=== PATIENT | female | born 1995 | race Caucasian/White ===

== ENCOUNTER 2022-03-03 23:11 | Emergency (ER) | payer BC ==
[2022-03-04] MEDS ORDERED: Sodium Chloride 0.9% 1,000 ML IV ONE (00:13)
[2022-03-04] MEDS ORDERED: Ketorolac 15 MG/ML SDV IVPUSH ONE (00:13)
[2022-03-04 00:47] LABS: ESTIMATED GFR > 60 mL/min (>60)
== END 2022-03-04 02:12 | disposition home or self-care (01) ==
LOC: JD.ED 23:11
DX: N39.0 Urinary tract infection, site not specified (principal); Z79.899 Other long term (current) drug therapy; Z91.013 Allergy to seafood; Z88.0 Allergy status to penicillin; Z91.040 Latex allergy status
CPT/HCPCS: 36415; 74177; 80053; 81001; 83605; 85025; 87086; 87088; 87186; 96361; 96374; 99284; J1885; J7030

== ENCOUNTER 2023-05-28 02:59 | Inpatient (IN) | payer BC ==
[2023-05-28] MEDS ORDERED: Sodium Chloride 0.9% 10 ML Syringe FLUSH PRN (06:00)
[2023-05-28] MEDS: Lactated Ringers 1,000 ML IV SCH ×2 (06:00→07:22)
[2023-05-28 06:08] LABS: BASOPHILS ABSOLUTE AUTO 0.1 K/mm3 (0.0-0.2); BASOPHILS PERCENT AUTO 0.7 % (0.0-1.0); EOSINOPHILS ABSOLUTE AUTO 0.1 K/mm3 (0.0-0.4); EOSINOPHILS PERCENT AUTO 1.7 % (0.0-6.0); HEMATOCRIT 33.2 % (37.0-47.0); HEMOGLOBIN 11.3 gm/dl (12.0-16.0); IMMATURE GRAN ABSOLUTE AUTO 0.01 K/mm3 (0.00-0.05); IMMATURE GRAN PERCENT AUTO 0.1 % (0.0-0.4); LYMPHOCYTES ABSOLUTE AUTO 1.6 K/mm3 (1.0-4.8); LYMPHOCYTES PERCENT AUTO 23.7 % (24.0-44.0); MEAN CORPUSCULAR HEMOGLOBIN 32.3 pg (28.0-32.0); MEAN CORPUSCULAR VOLUME 94.9 fl (83.0-99.0); MEAN PLATELET VOLUME 9.8 fl (9.4-12.3); MONOCYTES ABSOLUTE AUTO 0.5 K/mm3 (0.0-0.8); MONOCYTES PERCENT AUTO 7.7 % (0.0-8.0); NEUTROPHILS ABSOLUTE AUTO 4.5 K/mm3 (1.8-7.7); NEUTROPHILS PERCENT AUTO 66.1 % (41.0-71.0); PLATELET COUNT,PLT 175 K/mm3 (150-400); WHITE BLOOD CELL COUNT,WBC 6.87 K/mm3 (3.9-11.3)
[2023-05-28] MEDS ORDERED: Oxytocin 10 Units/1 ML SDV ONE ×2 (06:53→08:20)
[2023-05-28] MEDS ORDERED: Ondansetron 4 MG/2 ML SDV ONE (06:53)
[2023-05-28] MEDS ORDERED: fentaNYL 100 MCG/2 ML SDV ONE (06:53)
[2023-05-28] MEDS ORDERED: Morphine PF 10 MG/10 ML SDV ONE (06:54)
[2023-05-28] MEDS ORDERED: ceFAZolin 2 GM Vial ONE (06:54)
[2023-05-28] MEDS ORDERED: Metoclopramide 10 MG/2 ML SDV IVPUSH ONE (07:00)
[2023-05-28] MEDS ORDERED: Citric Acid/Sodium Citrate Solution 30 ML Cup PO ONE (07:00)
[2023-05-28] MEDS ORDERED: Bupivacaine 0.5% 30 ML SDV ONE (07:25)
[2023-05-28] MEDS ORDERED: ceFAZolin 2 GM in Sodium Chloride 0.9% 50 ML IV ONE (07:45)
[2023-05-28] MEDS ORDERED: Oxytocin/Lactated Ringers 10 UNIT/1,000 ML BAG IV SCH ×2 (08:00→09:55)
[2023-05-28] MEDS ORDERED: Ketorolac 30 MG/ML SDV ONE (08:20)
[2023-05-28] MEDS ORDERED: Lactated Ringers 1,000 ML ONE (08:20)
[2023-05-28] MEDS ORDERED: Ondansetron 4 MG/2 ML SDV IVPUSH PRN (08:37)
[2023-05-28] MEDS ORDERED: diphenhydrAMINE 50 MG/ML SDV IVPUSH PRN (08:37)
[2023-05-28] MEDS ORDERED: fentaNYL 100 MCG/2 ML SDV IVPUSH PRN (08:37)
[2023-05-28] MEDS ORDERED: Phenylephrine 1% 10 MG/ML SDV ONE (08:41)
[2023-05-28] MEDS ORDERED: Dexmedetomidine 200 MCG/2 ML SDV ONE (09:07)
[2023-05-28] MEDS ORDERED: ePHEDrine 50 MG/ML SDV IVPUSH PRN (09:55)
[2023-05-28] MEDS ORDERED: Naloxone 0.4 MG/ML SDV IVPUSH PRN (09:55)
[2023-05-28] MEDS ORDERED: Magnesium Hydroxide 400 MG/5 ML Susp 30 ML Cup PO PRN (09:55)
[2023-05-28] MEDS ORDERED: Dextrose 5%-Lactated Ringers 1,000 ML IV SCH (09:55)
[2023-05-28] MEDS: diphenhydrAMINE 50 MG/ML SDV IVPUSH PRN ×2 (11:19→18:56)
[2023-05-28] MEDS: Simethicone 80 MG Tab.Chew PO SCH ×2 (13:00→18:56)
[2023-05-28] MEDS: Ketorolac 30 MG/ML SDV IVPUSH SCH ×2 (14:02→20:28)
[2023-05-28] MEDS: Acetaminophen/oxyCODONE 325-5 MG Tab PO PRN (14:03)
[2023-05-28] MEDS: Docusate Sodium 100 MG Cap PO SCH (20:29)
[2023-05-29] MEDS: Acetaminophen/oxyCODONE 325-5 MG Tab PO PRN ×4 (00:14→21:30)
[2023-05-29] MEDS: Simethicone 80 MG Tab.Chew PO SCH ×5 (00:17→21:30)
[2023-05-29] MEDS: Ketorolac 30 MG/ML SDV IVPUSH SCH (02:54)
[2023-05-29] MEDS: Ibuprofen 600 MG Tab PO PRN ×2 (04:32→15:25)
[2023-05-29 06:23] LABS: BASOPHILS ABSOLUTE AUTO 0.1 K/mm3 (0.0-0.2); BASOPHILS PERCENT AUTO 0.6 % (0.0-1.0); EOSINOPHILS ABSOLUTE AUTO 0.2 K/mm3 (0.0-0.4); EOSINOPHILS PERCENT AUTO 1.8 % (0.0-6.0); HEMATOCRIT 35.3 % (37.0-47.0); HEMOGLOBIN 11.7 gm/dl (12.0-16.0); IMMATURE GRAN ABSOLUTE AUTO 0.03 K/mm3 (0.00-0.05); IMMATURE GRAN PERCENT AUTO 0.4 % (0.0-0.4); LYMPHOCYTES ABSOLUTE AUTO 1.1 K/mm3 (1.0-4.8); LYMPHOCYTES PERCENT AUTO 13.9 % (24.0-44.0); MEAN CORPUSCULAR HGB CONC 33.1 g/dl (32.0-36.0); MEAN CORPUSCULAR VOLUME 96.4 fl (83.0-99.0); MEAN PLATELET VOLUME 9.6 fl (9.4-12.3); MONOCYTES ABSOLUTE AUTO 0.6 K/mm3 (0.0-0.8); MONOCYTES PERCENT AUTO 7.3 % (0.0-8.0); NEUTROPHILS ABSOLUTE AUTO 6.2 K/mm3 (1.8-7.7); PLATELET COUNT,PLT 169 K/mm3 (150-400); RED BLOOD CELL COUNT 3.66 M/mm3 (4.10-5.30); WHITE BLOOD CELL COUNT,WBC 8.18 K/mm3 (3.9-11.3)
[2023-05-29] MEDS: Docusate Sodium 100 MG Cap PO SCH ×2 (08:15→21:29)
[2023-05-29] MEDS: Prenatal Multivitamin with Calcium/Folic Acid/Iron Tab PO SCH (08:15)
[2023-05-30] MEDS: Ibuprofen 600 MG Tab PO PRN (02:32)
[2023-05-30] MEDS: Acetaminophen/oxyCODONE 325-5 MG Tab PO PRN (04:17)
[2023-05-30 09:54] VITALS: BP 109/68; PULSE 71
[2023-05-30] MEDS: Prenatal Multivitamin with Calcium/Folic Acid/Iron Tab PO SCH (09:58)
[2023-05-30] MEDS: Docusate Sodium 100 MG Cap PO SCH (09:58)
[2023-05-30] MEDS: Simethicone 80 MG Tab.Chew PO SCH (09:58)
== END 2023-05-30 09:40 | disposition home or self-care (01) | DRG 540 ==
LOC: JD.OB 04:50
PROVIDERS: ADMIT Obstetrics & Gynecology; ATTEND Obstetrics & Gynecology
PROC: 10D00Z1 Extraction of Products of Conception, Low, Open Approach (ICD-10-PCS; principal; 2023-05-28)
DX: O34.211 Maternal care for low transverse scar from previous cesarean delivery (principal); O98.32 Other infections with a predominantly sexual mode of transmission complicating childbirth; A60.00 Herpesviral infection of urogenital system, unspecified; Z37.0 Single live birth; O99.814 Abnormal glucose complicating childbirth; Z3A.39 39 weeks gestation of pregnancy
CPT/HCPCS: 01961; 36415; 59025; 85025; 86592; 86850; 86870; 86900; 86901; 94762; A9270-GY; J0690; J1200; J1885; J2274; J2370; J2405; J2590; J2765; J3010; J3490; J7120; J7121